=== PATIENT | female | born 1945 | race Asian ===

== ENCOUNTER → 2023-09-10 11:19 | Outpatient (AMB) | payer OTHER, SELFPAY ==
--- NOTE | 2023-09-10 11:29 | A.OFFVIS_ITS ---
VS Expanded 09/10/23 13:05 Height 4 ft 9 in Weight 68 lb 1.6 oz BMI 14.7 Intake Visit Reasons: Failure to thrive-confirmed Nutrition Presentation Details: Pt presents for MNT for failure to thrive Pt presents with son during this appt. Pt is from [facility] The Pt participated minimally in the conversation, Pt nodded head and smiled. Pt 's son reports Pt is having reduced appetite, likes to have soup and root vegetables but very minimal of meats/protein foods. Son reports that often Pt refuses to eat by pushing meal to the side. Pt has prescription for ensure TID, son reports Pt may have 1/2 of one/day. Pt is able to chew, swallow denies diarrhea, denies constipation likes milk in tea, water , some juices but mostly drinks water and once a day tea eats rice in soups and bits of chicken or beef may have sweet cereals, pancakes BS Monitoring Most Recent Diabetes Results: No Data to Display Diagnosis Nutrition problem #1: inadequate protein energy As related to (etiology) #1: refusal to eat As evidenced by (sign/symptom) #1: poor PO intake and low BMI Assessment & Plan Assessment & Plan (1) Failure to thrive in adult: Code(s): R62.7 - Adult failure to thrive Category: Medical Plan: wt: 31 kg Rec kcal intake : 25 kcal/kg bw: 775 + 500/1000 =[phone] est fluid needs as per 25 ml/kg bw: 800 ml/d est prot as per 1 g /kg bw: 31 g Encouraging increasing caloric intake by increasing on Pt's preferred foods, adding soft protein foods to the meals, and nutrient dense beverages Patient Instructions: Provide 6 small meals throughout the day, providing foods she likes , including smoothies, desserts -Add 1 tbsp of powder milk to every cup of cow's milk and prepare soups, desserts, beverages -Use the ensure to make pancakes, cereals, smoothies, desserts - see list of ideas on how to incorporate ensure into recipes - Have fruit juices with meals in place of water to keep hydration and increase calories see list of ideas to add calorie/nutrients to the foods Coding Level of Care Code Nutr Indiv Intake (69595) Diagnoses Failure to thrive in adult R62.7 Time Spent (min) 30
[2023-09-10 13:05] VITALS: BMI 14.7
== END ==
PROVIDERS: PCP Internal Medicine; Visit Provider Dietitian, Registered
DX: R62.7 Adult failure to thrive (principal)

== ENCOUNTER → 2023-09-10 11:19 | Outpatient (BNVA) | payer OTHER, SELFPAY | PROVIDERS: PCP Internal Medicine; Visit Provider Dietitian, Registered | DX: R62.7 Adult failure to thrive (principal) | CPT/HCPCS: 97802 ==